=== PATIENT | female | born 1965 | race Hispanic/Latino ===

== ENCOUNTER 2017-09-22 10:38 | Emergency (ER) | payer MEDICARE, MEDICAID | END 2017-09-22 11:50 | disposition left against medical advice (07) | LOC: ERS 10:38 | DX: Z53.21 Procedure and treatment not carried out due to patient leaving prior to being seen by health care provider (principal) ==

== ENCOUNTER 2018-04-24 20:30 | Outpatient (CLI) | payer MEDICARE, MEDICAID | END 2018-04-24 20:31 | disposition home or self-care (01) | LOC: SLEEPLAB 20:30 | PROVIDERS: ATTEND Nurse Practitioner Family | DX: G47.33 Obstructive sleep apnea (adult) (pediatric) (principal); G47.10 Hypersomnia, unspecified; G47.00 Insomnia, unspecified; R06.83 Snoring; Z68.41 Body mass index [BMI] 40.0-44.9, adult | CPT/HCPCS: 95810 ==

== ENCOUNTER 2018-05-17 09:16 | Outpatient (CLI) | payer MEDICARE, MEDICAID | END 2018-05-17 09:17 | disposition home or self-care (01) | LOC: BICMAMMO 09:16 | PROVIDERS: ATTEND Nurse Practitioner Family | DX: Z12.31 Encounter for screening mammogram for malignant neoplasm of breast (principal) | CPT/HCPCS: 77063; 77067 ==

== ENCOUNTER 2018-05-22 20:30 | Outpatient (CLI) | payer MEDICARE, MEDICAID | END 2018-05-22 20:31 | disposition home or self-care (01) | LOC: SLEEPLAB 20:30 | PROVIDERS: ATTEND Nurse Practitioner Family | DX: G47.33 Obstructive sleep apnea (adult) (pediatric) (principal); Z68.41 Body mass index [BMI] 40.0-44.9, adult; G47.61 Periodic limb movement disorder | CPT/HCPCS: 95811 ==

== ENCOUNTER 2018-12-20 11:42 | Outpatient (CLI) | payer MEDICARE, MEDICAID ==
--- NOTE | 2018-12-20 12:07 | RAD ---
Right hand 3 views HISTORY: Right hand pain. Palpable mass. FINDINGS: Mild joint space narrowing of the distal interphalangeal joints, most notably at the ring f clary. Mild osteophytosis. No acute fracture, dislocation, radiopaque foreign bodies, or aggressive osseous erosions are apparent. IMPRESSION: Mild osteoarthritic changes. No acute osseous abnormalities are demonstrated.
== END 2018-12-20 11:43 | disposition home or self-care (01) ==
LOC: BICRAD 11:42
DX: R22.31 Localized swelling, mass and lump, right upper limb (principal); M19.041 Primary osteoarthritis, right hand

== ENCOUNTER 2018-12-27 11:07 | Outpatient (CLI) | payer MEDICARE, MEDICAID ==
[2018-12-27 14:07] LABS: #Basophils 0.1 thou/uL (0.0-0.2); #Eosinphils 0.2 thou/uL (0.0-0.7); #Lymphocytes 2.7 thou/uL (1.20-3.40); #Monocytes 0.6 thou/uL (0.11-0.59); %Basophils 1.1 % (0.0-1.0); %Eosinophils 2.5 % (0.0-10.0); %Lymphocytes 35.6 % (21.0-51.0); %Monocytes 8.4 % (0.0-10.0); %Neutrophils 52.4 % (42.0-75.0); Hemoglobin 13.9 g/dL (12.0-16.0); Mean Corpuscular HGB CONC 33.1 g/dL (32.0-36.0); Mean Corpuscular Hemoglobin 31.6 pg (27.0-31.0); Mean Corpuscular Volume 95.5 fL (78.0-98.0); Mean Platelet Volume 9.5 fL (7.4-10.4); Platelet Count 158 thou/uL (130-400); RBC Distribution Width 11.7 % (11.5-14.5); Red Blood Cell (RBC) Count 4.41 mill/uL (4.20-5.40); White Blood Cell (WBC) Count 7.6 thou/uL (4.8-10.8)
[2018-12-27 14:23] LABS: Anion Gap 10 mmol/L (10-20); BUN (Urea Nitrogen) 13 mg/dL (9.8-20.1); Calc. Creatinine Clearance 0 mL/min (70-130); Calcium 9.7 mg/dL (7.8-10.44); Carbon Dioxide 29 mmol/L (22-29); Chloride 104 mmol/L (98-107); Estimated GFR-MDRD 72; Glucose 100 mg/dL (70-105); Potassium 3.9 mmol/L (3.5-5.1); Sodium 139 mmol/L (136-145)
--- NOTE | 2018-12-28 07:05 | EKG ---
Test Reason : Blood Pressure : / mmHG Vent. Rate : 058 BPM Atrial Rate : 058 BPM P-R Int : 132 ms QRS Dur : 086 ms QT Int : 392 ms P-R-T Axes : 073 068 067 degrees QTc Int : 384 ms Sinus bradycardia Otherwise normal ECG When compared with ECG of 22-SEP-2017 10:49, No significant change was found Confirmed by DR. Clotilde GARZA ([id number]) on 12/28/2018 7:05:36 AM Referred By: CITLALLI Confirmed By:DR. Clotilde GARZA
== END 2018-12-27 11:08 | disposition home or self-care (01) ==
LOC: LABBT 11:07
PROVIDERS: ATTEND Orthopaedic Surgery
DX: Z01.818 Encounter for other preprocedural examination (principal); M79.9 Soft tissue disorder, unspecified
CPT/HCPCS: 80048; 85025; 93005; 93010

== ENCOUNTER 2019-01-02 06:40 | Day surgery (SDC) | payer MEDICARE, MEDICAID ==
[2018-12-27 12:16] VITALS: BMI 38.0
--- NOTE | 2019-01-01 09:49 | HP ---
HISTORY OF PRESENT ILLNESS: The patient is a 53-year-old female with a several month history of a painful mass in her right palm. There has been no injury. It is interfering with day-to-day activities including grasping objects. 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 CURRENT MEDICATIONS: Include 1. Metformin. 2. Levothyroxine. 3. Lisinopril. 4. Simvastatin. 5. Tramadol. ALLERGIES: SHE HAS NO KNOWN ALLERGIES. FAMILY HISTORY: Otherwise unremarkable. SOCIAL HISTORY: Otherwise unremarkable. REVIEW OF SYSTEMS: Otherwise unremarkable. PHYSICAL EXAMINATION: GENERAL: This is a healthy heavy-set female. HEENT: Unremarkable. NECK: Supple. CHEST: Clear. HEART: Regular rate and rhythm. ABDOMEN: Soft. Nontender. PELVIC: Deferred. RECTAL: Deferred. BREAST: Deferred. EXTREMITIES: Pertinent findings related to the right hand. There is a 1 x 1 cm prominent mass in the area of the A1 luzmaria of the right middle finger. It appears to be superficial to the tendons, but there is no triggering. The mass is semi-mobile and is tender. Negative Tinel sign. NEUROVASCULAR: Intact. There is full range of motion. X-rays of the hand are negative except for mild DJD of several IP joints. 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 PLAN: Surgical excision. The nature of the surgery, length of recovery, and potential complications such as infection, loss of motion, incomplete relief, neurovascular injury, recurrence, and need for additional treatment, repeat surgery discussed in detail. Job ID: [id number]
[2019-01-02] MEDS ORDERED: Bupivacaine PF 0.5% 30 ML VIAL ONE (08:27)
[2019-01-02] MEDS ORDERED: Midazolam HCl 2 mg/2 ml Vial ONE (08:34)
[2019-01-02] MEDS ORDERED: Fentanyl 100 MCG/2 ML VIAL ONE (08:34)
[2019-01-02] MEDS ORDERED: PROPOFOL 200 MG/20 ML VIAL ONE (14:58)
--- NOTE | 2019-01-02 16:16 | OP ---
DATE OF PROCEDURE: 01/02/2019 ANESTHESIA: Local plus TIVA. PREOPERATIVE DIAGNOSIS: Soft tissue mass, right palm. POSTOPERATIVE DIAGNOSIS: soft tissue mass of flexor tendon sheath, right middle finger. PROCEDURE PERFORMED: Excision of soft tissue mass, flexor tendon sheath, right middle finger, probable ganglion versus a giant cell tumor of tendon sheath. Pathology pending. DESCRIPTION OF PROCEDURE: After satisfactory anesthesia was induced in supine position, the patient was prepped and draped in routine manner. Metacarpal block was accomplished with 10 mL of 0.5% plain Marcaine. The hand was elevated and exsanguinated with an Esmarch bandage, and the tourniquet inflated to 250 mmHg. An oblique incision was made in the distal palmar crease over the palpable mass of the right third finger. This was carried down through the subcutaneous tissues and bleeding points were controlled with Bovie cautery. Digital neurovascular bundles were protected. Using sharp and blunt dissection, the mass was excised in its entirety along with a window of the flexor tendon sheath which was attached to the sheath. I did not open the mass, it was semisolid. I could not totally tell whether this was a ganglion or a giant cell tumor of tendon sheath, it was sent to Pathology. The remaining A1 luzmaria was split longitudinally making sure there was no triggering. The wound was then thoroughly irrigated. The skin was closed with interrupted 3-0 nylon. A sterile bulky compressive dressing was applied and the tourniquet was deflated after 12 minutes. The hand promptly pinked up. The patient was awakened and taken from the operative room in stable condition. There were no apparent intraoperative complications. The estimated blood loss was negligible. The patient will be discharged home in satisfactory condition, started on ice and elevation, given written wound care instructions. She was given a prescription for [place] 5 for pain, 24 tablets. She will be rechecked in my office in 10 to 14 days or sooner if there are any problems prior to that time. Job ID: [id number]
== END 2019-01-02 10:30 | disposition home or self-care (01) ==
LOC: SDC 06:40
PROVIDERS: ATTEND Orthopaedic Surgery
PROC: 0LB70ZZ Excision of Right Hand Tendon, Open Approach (ICD-10-PCS; principal; 2019-01-02)
DX: R22.31 Localized swelling, mass and lump, right upper limb (principal); I10 Essential (primary) hypertension; R73.03 Prediabetes; M19.90 Unspecified osteoarthritis, unspecified site; E66.9 Obesity, unspecified; Z68.38 Body mass index [BMI] 38.0-38.9, adult; Z79.899 Other long term (current) drug therapy; Z79.84 Long term (current) use of oral hypoglycemic drugs
CPT/HCPCS: 88304; J0690; J2250; J2704; J3010; S0020

== ENCOUNTER 2019-02-07 06:31 | Emergency (ER) | payer MEDICARE, MEDICAID ==
[2019-02-07 07:08] LABS: #Eosinphils 0.3 thou/uL (0.0-0.7); #Lymphocytes 3.8 thou/uL (1.20-3.40); #Neutrophils 4.5 thou/uL (1.40-6.50); %Basophils 0.5 % (0.0-1.0); %Lymphocytes 39.5 % (21.0-51.0); Hemoglobin 13.6 g/dL (12.0-16.0); Mean Corpuscular HGB CONC 33.2 g/dL (32.0-36.0); Mean Corpuscular Hemoglobin 30.8 pg (27.0-31.0); Mean Corpuscular Volume 92.9 fL (78.0-98.0); Mean Platelet Volume 8.4 fL (7.4-10.4); Platelet Count 177 thou/uL (130-400); RBC Distribution Width 11.5 % (11.5-14.5); Red Blood Cell (RBC) Count 4.41 mill/uL (4.20-5.40); White Blood Cell (WBC) Count 9.7 thou/uL (4.8-10.8)
--- NOTE | 2019-02-07 07:27 | RAD ---
EXAM: Single view of the chest HISTORY: Shortness of breath and difficulty swallowing COMPARISON: 08/29/2016 FINDINGS: Single view of the chest shows a normal sized cardiomediastinal silhouette. There is no carley dence of consolidation, mass, or pleural effusion. Degenerative changes are seen in the spine. IMPRESSION: No evidence of acute cardiopulmonary disease
[2019-02-07 07:34] LABS: ALT (SGPT) 28 U/L (8-55); AST (SGOT) 20 U/L (5-34); Albumin 3.7 g/dL (3.5-5.0); Alkaline Phosphatase 79 U/L (40-150); Anion Gap 14 mmol/L (10-20); BUN (Urea Nitrogen) 15 mg/dL (9.8-20.1); Bilirubin, Total 0.4 mg/dL (0.2-1.2); Calc. Creatinine Clearance 0 mL/min (70-130); Calcium 9.6 mg/dL (7.8-10.44); Carbon Dioxide 22 mmol/L (22-29); Chloride 106 mmol/L (98-107); Estimated GFR-MDRD 69; Globulin 3.1 g/dL (2.4-3.5); Glucose 101 mg/dL (70-105); Protein, Total 6.8 g/dL (6.0-8.3); Sodium 138 mmol/L (136-145)
[2019-02-07] MEDS ORDERED: Morphine 4 MG/ML VIAL ONE (07:59)
[2019-02-07] MEDS ORDERED: Ondansetron PF 4 MG/2 ML Vial ONE (07:59)
--- NOTE | 2019-02-07 08:00 | CT ---
CT neck soft tissues with contrast: DATE: 02/07/2019 HISTORY: 53-year-old female with sore throat and dysphagia FINDINGS: Lung apices are grossly clear. Bilateral tympanomastoid cavities and maxillary sinuses are clear. Akbar ateral thyroid nodules, right larger than left. Trachea, nasopharyngeal airway, and oropharyngeal airway demonstrate no high-grade stenosis. Mild thickening of region of bilateral palatine tonsils. M oderate enlargement of lingual tonsil. Minimal thickening of adenoids. No cervical lymphadenopathy. No major pathology of submandibular, parotid, carotid, retropharyngeal, posterior cervical, periverte bral, and cardiac specialist, spaces. No abscess, cystic lesion, or solid mass outside of the thyroid gland. IMPRESSION: 1. Mild hyperplasia of Waldeyer's ring. 2. Thyroid nodules. 3. No abscess.
--- NOTE | 2019-02-08 08:48 | EKG ---
Test Reason : Blood Pressure : / mmHG Vent. Rate : 070 BPM Atrial Rate : 070 BPM P-R Int : 114 ms QRS Dur : 092 ms QT Int : 358 ms P-R-T Axes : 077 043 044 degrees QTc Int : 386 ms Normal sinus rhythm Normal ECG Confirmed by LASHELL RICHARDSON MD ([id number]), multimedia editor EVAN SAVAGE ([id number]) on 02/08/2019 8:41:39 AM Also confirmed by LASHELL RICHARDSON MD ([id number]), multimedia editor EVAN SAVAGE ([id number]) on 02/08/2019 8:47:59 AM Referred By: Confirmed By:LASHELL RICHARDSON MD
== END 2019-02-07 08:27 | disposition home or self-care (01) ==
LOC: ERS 06:31
DX: J03.90 Acute tonsillitis, unspecified (principal); E04.1 Nontoxic single thyroid nodule; G47.30 Sleep apnea, unspecified; E03.9 Hypothyroidism, unspecified; F41.9 Anxiety disorder, unspecified; F31.9 Bipolar disorder, unspecified; F25.9 Schizoaffective disorder, unspecified; Z79.891 Long term (current) use of opiate analgesic
CPT/HCPCS: 36415; 70491; 71045; 80053; 84484; 85025; 93005; 96374; 96375; J2270; J2405

== ENCOUNTER 2019-02-08 16:22 | Emergency (ER) | payer MEDICARE, MEDICAID ==
[2019-02-08] MEDS ORDERED: Ondansetron ODT 4 MG TAB ONE (16:30)
[2019-02-08] MEDS ORDERED: Ondansetron PF 4 MG/2 ML Vial ONE (19:25)
[2019-02-08 20:08] LABS: #Eosinphils 0.1 thou/uL (0.0-0.7); #Monocytes 0.6 thou/uL (0.11-0.59); #Neutrophils 6.3 thou/uL (1.40-6.50); %Basophils 0.1 % (0.0-1.0); %Eosinophils 1.1 % (0.0-10.0); %Lymphocytes 21.8 % (21.0-51.0); %Monocytes 6.9 % (0.0-10.0); %Neutrophils 70.1 % (42.0-75.0); Hemoglobin 13.8 g/dL (12.0-16.0); Mean Corpuscular HGB CONC 33.3 g/dL (32.0-36.0); Mean Corpuscular Volume 93.1 fL (78.0-98.0); Mean Platelet Volume 8.7 fL (7.4-10.4); Platelet Count 180 thou/uL (130-400); RBC Distribution Width 11.3 % (11.5-14.5); Red Blood Cell (RBC) Count 4.47 mill/uL (4.20-5.40)
[2019-02-08 20:14] LABS: BHCG - Serum Negative (NEGATIVE); Pregs Control Background? CLEAR/WHITE (CLR/WHITE); Pregs Control Bar Appear? YES (CONTROL BAR)
[2019-02-08 20:37] LABS: ALT (SGPT) 47 U/L (8-55); AST (SGOT) 29 U/L (5-34); Albumin 3.7 g/dL (3.5-5.0); Alkaline Phosphatase 90 U/L (40-150); Anion Gap 13 mmol/L (10-20); BUN (Urea Nitrogen) 10 mg/dL (9.8-20.1); Bilirubin, Total 0.5 mg/dL (0.2-1.2); Calc. Creatinine Clearance 0 mL/min (70-130); Calcium 9.4 mg/dL (7.8-10.44); Carbon Dioxide 23 mmol/L (22-29); Chloride 107 mmol/L (98-107); Estimated GFR-MDRD 79; Globulin 3.3 g/dL (2.4-3.5); Glucose 96 mg/dL (70-105); Lipase 77 U/L (8-78); Potassium 3.6 mmol/L (3.5-5.1); Sodium 139 mmol/L (136-145)
== END 2019-02-08 21:30 | disposition home or self-care (01) ==
LOC: ERS 16:22
DX: R11.2 Nausea with vomiting, unspecified (principal)
CPT/HCPCS: 36415; 80053; 83690; 84484; 84703; 85025; 87324; 87449; 93005; 96361; 96374; J2405; Q0162

== ENCOUNTER 2019-10-02 08:45 | Emergency (ER) | payer MEDICARE, OTHER ==
--- NOTE | 2019-10-02 10:01 | RAD ---
CHEST 2 VIEWS: Date: 10/02/2019 HISTORY: Difficulty breathing, cough. COMPARISON: 08/29/2016. FINDINGS: Heart size is within normal limits. The lungs are clear. No confluent pneumonia, overt edema, or pleu ral effusion. IMPRESSION: No acute intrathoracic disease. No evidence for pneumonia. POS: [facility]
[2019-10-02] MEDS ORDERED: Ondansetron PF 4 MG/2 ML Vial ONE (10:28)
[2019-10-02 10:50] LABS: #Eosinphils 0.3 thou/uL (0.0-0.7); #Monocytes 0.9 thou/uL (0.11-0.59); #Neutrophils 2.6 thou/uL (1.40-6.50); %Basophils 0.6 % (0.0-1.0); %Eosinophils 4.1 % (0.0-10.0); %Lymphocytes 44.2 % (21.0-51.0); %Monocytes 13.6 % (0.0-10.0); %Neutrophils 37.5 % (42.0-75.0); Hemoglobin 14.5 g/dL (12.0-16.0); Mean Corpuscular HGB CONC 32.5 g/dL (32.0-36.0); Mean Corpuscular Volume 92.3 fL (78.0-98.0); Mean Platelet Volume 8.7 fL (7.4-10.4); Platelet Count 162 thou/uL (130-400); RBC Distribution Width 11.6 % (11.5-14.5); Red Blood Cell (RBC) Count 4.83 mill/uL (4.20-5.40); White Blood Cell (WBC) Count 6.9 thou/uL (4.8-10.8)
[2019-10-02 11:13] LABS: ALT (SGPT) 22 U/L (8-55); AST (SGOT) 23 U/L (5-34); Albumin 3.7 g/dL (3.5-5.0); Alkaline Phosphatase 119 U/L (40-110); Anion Gap 13 mmol/L (10-20); BUN (Urea Nitrogen) 11 mg/dL (9.8-20.1); Bilirubin, Total 0.5 mg/dL (0.2-1.2); Calc. Creatinine Clearance 0 mL/min (70-130); Calcium 9.9 mg/dL (7.8-10.44); Carbon Dioxide 24 mmol/L (22-29); Chloride 107 mmol/L (98-107); Estimated GFR-MDRD 82; Globulin 3.4 g/dL (2.4-3.5); Glucose 102 mg/dL (70-105); Potassium 3.8 mmol/L (3.5-5.1); Protein, Total 7.1 g/dL (6.0-8.3); Sodium 140 mmol/L (136-145)
== END 2019-10-02 11:45 | disposition home or self-care (01) ==
LOC: ERS 08:45
DX: E86.0 Dehydration (principal); R19.7 Diarrhea, unspecified; R05 Cough; R11.2 Nausea with vomiting, unspecified; E03.9 Hypothyroidism, unspecified; G47.30 Sleep apnea, unspecified; E11.9 Type 2 diabetes mellitus without complications; E78.5 Hyperlipidemia, unspecified; J45.909 Unspecified asthma, uncomplicated; F41.9 Anxiety disorder, unspecified; F31.9 Bipolar disorder, unspecified; F25.9 Schizoaffective disorder, unspecified; Z79.899 Other long term (current) drug therapy
CPT/HCPCS: 36415; 71046; 80053; 85025; 87804; 93005; 96361; 96374; J2405

== ENCOUNTER 2020-01-16 23:56 | Emergency (ER) | payer MEDICARE, MEDICAID | END 2020-01-17 01:30 | disposition home or self-care (01) | LOC: ERS 23:56 | DX: N64.4 Mastodynia (principal); E11.9 Type 2 diabetes mellitus without complications; J45.909 Unspecified asthma, uncomplicated; E78.5 Hyperlipidemia, unspecified; E03.9 Hypothyroidism, unspecified; G47.30 Sleep apnea, unspecified; F31.9 Bipolar disorder, unspecified; F41.9 Anxiety disorder, unspecified; F25.9 Schizoaffective disorder, unspecified | CPT/HCPCS: 99283 ==

== ENCOUNTER 2020-02-22 15:00 | Emergency (ER) | payer MEDICARE, MEDICAID ==
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
== END 2020-02-22 18:25 | disposition left against medical advice (07) ==
LOC: ERS 15:00
DX: Z53.21 Procedure and treatment not carried out due to patient leaving prior to being seen by health care provider (principal)

== ENCOUNTER 2020-02-23 16:10 | Emergency (ER) | payer MEDICARE, MEDICAID ==
[2020-02-23 17:17] LABS: #Eosinphils 0.1 thou/uL (0.0-0.7); #Lymphocytes 2.3 thou/uL (1.20-3.40); #Monocytes 0.4 thou/uL (0.11-0.59); #Neutrophils 3.6 thou/uL (1.40-6.50); %Basophils 0.4 % (0.0-1.0); %Eosinophils 1.7 % (0.0-10.0); %Lymphocytes 35.9 % (21.0-51.0); %Monocytes 6.5 % (0.0-10.0); %Neutrophils 55.5 % (42.0-75.0); Hemoglobin 13.5 g/dL (12.0-16.0); Mean Corpuscular HGB CONC 33.5 g/dL (32.0-36.0); Mean Corpuscular Hemoglobin 30.7 pg (27.0-31.0); Mean Corpuscular Volume 91.6 fL (78.0-98.0); Mean Platelet Volume 9.1 fL (7.4-10.4); Platelet Count 145 thou/uL (130-400); RBC Distribution Width 11.5 % (11.5-14.5); White Blood Cell (WBC) Count 6.5 thou/uL (4.8-10.8)
[2020-02-23 17:26] LABS: BHCG - Serum Negative (NEGATIVE); Pregs Control Background? CLEAR/WHITE (CLR/WHITE); Pregs Control Bar Appear? YES (CONTROL BAR)
--- NOTE | 2020-02-23 17:31 | RAD ---
CHEST ONE VIEW: History: Dizziness Comparison: 10-02-2019 FINDINGS: Heart size is normal. The lungs are clear. IMPRESSION: No significant acute intrathoracic disease. POS: [facility]
[2020-02-23 17:40] LABS: ALT (SGPT) 18 U/L (8-55); AST (SGOT) 17 U/L (5-34); Albumin 3.4 g/dL (3.5-5.0); Alkaline Phosphatase 119 U/L (40-110); Anion Gap 10 mmol/L (10-20); BUN (Urea Nitrogen) 15 mg/dL (9.8-20.1); Bilirubin, Total 0.4 mg/dL (0.2-1.2); CK (CPK) 34 U/L (29-168); Calc. Creatinine Clearance 0 mL/min (70-130); Calcium 9.4 mg/dL (7.8-10.44); Carbon Dioxide 26 mmol/L (22-29); Chloride 108 mmol/L (98-107); Estimated GFR-MDRD 78; Globulin 3.2 g/dL (2.4-3.5); Glucose 137 mg/dL (70-105); Magnesium 1.6 mg/dL (1.6-2.6); Potassium 4.1 mmol/L (3.5-5.1); Protein, Total 6.6 g/dL (6.0-8.3); Sodium 140 mmol/L (136-145)
[2020-02-23 18:53] LABS: Bacteria/HPF None Seen HPF (None Seen); Bilirubin Negative (Negative); Blood, Urine Negative (Negative); Calcium Oxalate Crystals 2+ HPF (None Seen); Clarity Clear (Clear); Glucose, Urine (Dipstick) Normal (Negative); Ketone, Urine Negative (Negative); Leukocyte 75 Leu/uL (Negative); Nitrite Negative (Negative); Protein, Urine (Dipstick) 30 mg/dL (Neg-Trace); RBC/HPF 0-3 HPF (0-3); Specific Gravity, Urine 1.029 (1.002-1.036); Squamous Epithelial 0-3 HPF (0-3); Urobilinogen Normal mg/dL (Less than 2); pH, Urine 5.5 (5.0-9.0)
[2020-02-23 19:00] LABS: Mucous/LPF 2+ LPF (<2+)
== END 2020-02-23 19:07 | disposition home or self-care (01) ==
LOC: ERS 16:10
DX: R55 Syncope and collapse (principal); G47.30 Sleep apnea, unspecified; E11.9 Type 2 diabetes mellitus without complications; E05.90 Thyrotoxicosis, unspecified without thyrotoxic crisis or storm; Z79.891 Long term (current) use of opiate analgesic; Z79.899 Other long term (current) drug therapy
CPT/HCPCS: 71045; 80053; 81003; 81015; 82550; 83735; 84484; 84703; 85025; 93005; 96360

== ENCOUNTER 2020-09-15 11:55 | Emergency (ER) | payer OTHER ==
[2020-09-15] MEDS ORDERED: Morphine 4 MG/ML VIAL ONE (13:03)
[2020-09-15] MEDS ORDERED: Ondansetron ODT 4 MG TAB ONE (13:04)
--- NOTE | 2020-09-15 13:43 | RAD ---
XR Knee Rt 4 View STANDARD HISTORY: Fall, right knee pain FINDINGS: No fracture or dislocation is identified. Degenerative changes are present.
--- NOTE | 2020-09-15 13:47 | RAD ---
Frontal and lateral imaging right femur: 09/15/2020 HISTORY: Fall, pain FINDINGS: There is prominent patellofemoral joint space narrowing with posterior patellar osteophyte formation. No acute fracture or dislocation is seen. There is medial and lateral compartment narrowing with significant lateral osteophyte formation. IMPRESSION: No displaced fracture
--- NOTE | 2020-09-15 13:56 | CT ---
CT of thelumbar spine: 09/15/2020 COMPARISON:None available HISTORY:Fall, pain TECHNIQUE: Serial axial CT imaging at2.5 mm intervals from thelower thoracic spine through the lower sacrum without contrast. Coronal and sagittal reformatted imaging provided. Findings:Evaluation for central canal and/or neural foraminal stenosis is limited. Bilateral sacroili ac joint fusion hardware present. Cholecystectomy clips are noted. T12-L1: Disc space narrowing with anterior and bilateral lateral osteophyte formation. Anterior vacuu m disc changes. There is no osseous cause of significant central canal or neural foraminal stenosis. L1-2: There is disc space narrowing and mild anterior osteophyte formation with mild bilateral facet hypertrophy. There is no osseous cause of significant central canal stenosis. Probable mild right neural foraminal stenosis. L2-3: There is bilateral facet hypertrophy, right greater than left. Right lateral osteophyte formati on. Probable mild bilateral neural foraminal stenosis, right greater than left. L3-4: Mild bilateral facet hypertrophy with mild bilateral neural foraminal stenosis. No osseous caus e of significant central canal stenosis. L4-5: 6 mm of anterolisthesis noted. Prominent bilateral facet hypertrophy with probable moderate steven ateral neural foraminal stenosis and at least mild central canal stenosis. L5-S1: There is disc space narrowing with vacuum disc formation and bilateral facet hypertrophy, left greater than right. Moderate left neural foraminal stenosis. No acute fracture or dislocation. Partially imaged diverticulosis of the descending colon and sigmoid colon present. Impression:Multilevel lumbar spine degenerative change. No acute fracture or dislocation.
--- NOTE | 2020-09-15 14:01 | RAD ---
AP PELVIS: 09/15/20 HISTORY: Fall at home. Complaining of pelvic pain. I-bar placement across both SI joints are seen. The pelvic ring is intact without evidence of fractur e. There is ossification at the level of the hamstring tendon origins bilaterally, more prominent on the right. IMPRESSION: No acute injury. POS: [facility]
--- NOTE | 2020-09-15 14:02 | RAD ---
RIGHT HIP THREE VIEWS: 09/15/20 HISTORY: Fall with hip pain. There is some ossification at the level of the hamstring tendon origin. There is no signs of fracture or dislocation. IMPRESSION: No evidence of fracture. POS: [facility]
== END 2020-09-15 14:35 | disposition home or self-care (01) ==
LOC: ERS 11:55
DX: M25.561 Pain in right knee (principal); M25.551 Pain in right hip; M54.5 Low back pain; E11.9 Type 2 diabetes mellitus without complications; W18.30XA Fall on same level, unspecified, initial encounter
CPT/HCPCS: 72131; 72170; 96372; J2270; Q0162

== ENCOUNTER 2021-01-22 00:39 | Emergency (ER) | payer MEDICARE, MEDICAID ==
[2021-01-22] MEDS ORDERED: Ketorolac Tromethamine 30 MG/ML VIAL ONE (04:29)
== END 2021-01-22 05:41 | disposition home or self-care (01) ==
LOC: ERS 00:39
DX: M79.671 Pain in right foot (principal); E11.9 Type 2 diabetes mellitus without complications
CPT/HCPCS: 96372; J1885

== ENCOUNTER 2021-03-05 14:20 | Outpatient (CLI) | payer MEDICARE, MEDICAID | END 2021-03-05 14:21 | disposition home or self-care (01) | LOC: BICRAD 14:20 | PROVIDERS: ATTEND Family Medicine | DX: M54.5 Low back pain (principal); T14.8XXA Other injury of unspecified body region, initial encounter; M47.816 Spondylosis without myelopathy or radiculopathy, lumbar region; M43.16 Spondylolisthesis, lumbar region | CPT/HCPCS: 72100 ==

== ENCOUNTER 2021-11-18 09:43 | Outpatient (CLI) | payer MEDICARE, OTHER | END 2021-11-18 09:44 | disposition home or self-care (01) | LOC: BICMAMMO 09:43 | PROVIDERS: ATTEND Family Medicine | DX: Z12.31 Encounter for screening mammogram for malignant neoplasm of breast (principal) | CPT/HCPCS: 77063; 77067 ==

== ENCOUNTER 2021-12-27 14:39 | Emergency (ER) | payer MEDICAID, MEDICARE, OTHER ==
[~2021-12-27 14:39] MED LIST: Iopamidol-370 76% 500 ML 1 ML ONE
[2021-12-27 15:14] LABS: #Basophils 0.1 thou/uL (0.0-0.2); #Eosinphils 0.1 thou/uL (0.0-0.7); #Monocytes 0.7 thou/uL (0.11-0.59); #Neutrophils 8.3 thou/uL (1.40-6.50); %Basophils 0.8 % (0.0-1.0); %Eosinophils 0.9 % (0.0-10.0); %Lymphocytes 9.5 % (21.0-51.0); %Monocytes 6.8 % (0.0-10.0); Hemoglobin 11.5 g/dL (12.0-16.0); Mean Corpuscular HGB CONC 32.3 g/dL (32.0-36.0); Mean Corpuscular Hemoglobin 29.9 pg (27.0-31.0); Mean Corpuscular Volume 92.6 fL (78.0-98.0); Platelet Count 135 thou/uL (130-400); RBC Distribution Width 12.3 % (11.5-14.5); Red Blood Cell (RBC) Count 3.85 mill/uL (4.20-5.40); White Blood Cell (WBC) Count 10.1 thou/uL (4.8-10.8)
[2021-12-27 15:42] LABS: ALT (SGPT) 14 U/L (8-55); AST (SGOT) 14 U/L (5-34); Albumin 3.3 g/dL (3.5-5.0); Alkaline Phosphatase 158 U/L (40-110); Anion Gap 11 mmol/L (10-20); BUN (Urea Nitrogen) 12 mg/dL (9.8-20.1); Bilirubin, Total 0.8 mg/dL (0.2-1.2); Calc. Creatinine Clearance 0 mL/min (70-130); Calcium 9.1 mg/dL (7.8-10.44); Carbon Dioxide 27 mmol/L (22-29); Chloride 102 mmol/L (98-107); Globulin 3.6 g/dL (2.4-3.5); Glucose 100 mg/dL (70-105); Lipase 8 U/L (8-78); Protein, Total 6.9 g/dL (6.0-8.3); Sodium 137 mmol/L (136-145)
[2021-12-27] MEDS ORDERED: Ondansetron PF 4 MG/2 ML Vial ONE (17:28)
[2021-12-27] MEDS ORDERED: Acetaminophen 500 MG TAB ONE (19:10)
[2021-12-27 19:39] LABS: Bacteria/HPF 2+ HPF (None Seen); Bilirubin Negative (Negative); Blood, Urine 2+ (Negative); Clarity Clear (Clear); Glucose, Urine (Dipstick) Normal (Negative); Ketone, Urine Negative (Negative); Leukocyte 250 Leu/uL (Negative); Nitrite Negative (Negative); Protein, Urine (Dipstick) Negative (Neg-Trace); Squamous Epithelial 0-3 HPF (0-3); Urobilinogen Normal mg/dL (Less than 2); WBC/HPF 21-50 HPF (0-3); pH, Urine 6.5 (5.0-9.0)
[2021-12-27] MEDS ORDERED: Promethazine HCl 12.5 MG in Sodium Chloride 0.9% 50 ML IVPB SCH (20:45)
[2021-12-27] MEDS ORDERED: Ibuprofen 200 MG TAB ONE (21:18)
== END 2021-12-27 21:52 | disposition home or self-care (01) ==
LOC: ERS 14:39
DX: N39.0 Urinary tract infection, site not specified (principal); R11.2 Nausea with vomiting, unspecified; E05.90 Thyrotoxicosis, unspecified without thyrotoxic crisis or storm; Z87.891 Personal history of nicotine dependence
CPT/HCPCS: 36415; 74177; 80053; 81003; 81015; 83605; 83690; 84484; 85025; 87040; 87804; 93005; 96361; 96374; 96375; J2405; J2550; Q9967

== ENCOUNTER 2023-06-28 08:29 | Emergency (ER) | payer MEDICAID, OTHER, SELFPAY ==
[2023-06-28] MEDS ORDERED: Ibuprofen 200 MG TAB ONE (09:05)
[2023-06-28] MEDS ORDERED: Acetaminophen 500 MG TAB ONE (09:05)
== END 2023-06-28 10:05 | disposition home or self-care (01) ==
LOC: ERS 08:29
DX: M25.572 Pain in left ankle and joints of left foot (principal); M95.8 Other specified acquired deformities of musculoskeletal system

== ENCOUNTER 2023-07-18 20:28 | Emergency (ER) | payer MEDICAID ==
[2023-07-18] MEDS ORDERED: Ketorolac Tromethamine 30 MG/ML VIAL ONE (21:36)
[2023-07-18 23:08] LABS: SARS-CoV-2 NAA Rapid Test Not Detected (NotDetected)
== END 2023-07-18 23:13 | disposition home or self-care (01) ==
LOC: ERS 20:28
DX: J11.1 Influenza due to unidentified influenza virus with other respiratory manifestations (principal); Z20.822 Contact with and (suspected) exposure to COVID-19
CPT/HCPCS: 96372; 99283; J1885

== ENCOUNTER 2023-07-20 15:33 | Emergency (ER) | payer MEDICAID | END 2023-07-20 16:16 | disposition home or self-care (01) | LOC: ERS 15:33 | DX: J11.1 Influenza due to unidentified influenza virus with other respiratory manifestations (principal); E05.90 Thyrotoxicosis, unspecified without thyrotoxic crisis or storm | CPT/HCPCS: 99283 ==

== ENCOUNTER 2023-08-15 22:37 | Emergency (ER) | payer MEDICAID, MEDICARE ==
[2023-08-15] MEDS ORDERED: Ipratropium/Albuterol 3 ML NEB ONE (23:16)
[2023-08-15] MEDS ORDERED: predniSONE 20 MG TAB ONE (23:21)
[2023-08-15 23:28] LABS: #Eosinphils 0.5 thou/uL (0.0-0.7); #Monocytes 0.7 thou/uL (0.11-0.59); #Neutrophils 3.8 thou/uL (1.40-6.50); %Basophils 0.3 % (0.0-1.0); %Eosinophils 7.6 % (0.0-10.0); %Monocytes 10.1 % (0.0-10.0); %Neutrophils 55.7 % (42.0-75.0); Hematocrit 46.4 % (36.0-47.0); Hemoglobin 14.9 g/dL (12.0-16.0); Mean Corpuscular HGB CONC 32.1 g/dL (32.0-36.0); Mean Corpuscular Hemoglobin 30.7 pg (27.0-31.0); Mean Corpuscular Volume 95.5 fl (78.0-98.0); Mean Platelet Volume 10.8 fL (7.4-10.4); Platelet Count 147 10x3/uL (130-400); RBC Distribution Width 12.9 % (11.5-14.5); Red Blood Cell (RBC) Count 4.86 mill/uL (4.20-5.40); White Blood Cell (WBC) Count 6.7 10x3/uL (4.8-10.8)
[2023-08-15 23:52] LABS: ALT (SGPT) 15 U/L (8-55); AST (SGOT) 21 U/L (5-34); Albumin 3.9 g/dL (3.5-5.0); Alkaline Phosphatase 105 U/L (40-110); Anion Gap 15 mmol/L (10-20); BUN (Urea Nitrogen) 14 mg/dL (9.8-20.1); Bilirubin, Total 0.4 mg/dL (0.2-1.2); Calc. Creatinine Clearance 0 mL/min (70-130); Calcium 8.8 mg/dL (7.8-10.44); Carbon Dioxide 19 mmol/L (22-29); Chloride 106 mmol/L (98-107); Estimated GFR 74; Globulin 3.7 g/dL (2.4-3.5); Glucose 96 mg/dL (70-105); Potassium 4.3 mmol/L (3.5-5.1); Protein, Total 7.6 g/dL (6.0-8.3); Sodium 136 mmol/L (136-145)
[2023-08-15 23:54] LABS: Troponin I Less than 0.010 ng/mL (< 0.028)
[2023-08-16 01:38] LABS: SARS-CoV-2 NAA Rapid Test Not Detected (NotDetected)
== END 2023-08-16 01:51 | disposition home or self-care (01) ==
LOC: ERS 22:37
DX: J45.901 Unspecified asthma with (acute) exacerbation (principal); F17.210 Nicotine dependence, cigarettes, uncomplicated; E11.9 Type 2 diabetes mellitus without complications; Z79.899 Other long term (current) drug therapy
CPT/HCPCS: 36415; 71045; 80053; 83880; 84484; 85025; 93005; 94640; J7512; J7620